=== PATIENT | male | born 1960 | race African-American/Black ===

== ENCOUNTER 2018-12-11 13:38 | Inpatient (IN) | payer SELFPAY ==
[~2018-12-11] VITALS: Ht 172.7 cm; Wt 80.5 kg
[2018-12-11 13:53] LABS: BASO # 0.1 x10^3/uL (0.0-0.2); BASO % 1 % (0-3); EOS # 0.1 x10^3/uL (0.0-0.7); EOS % 1 % (0-3); HEMATOCRIT 43.9 % (39.0-53.0); HEMOGLOBIN 14.9 g/dL (13.0-17.5); LYMPH # 2.6 x10^3/uL (1.0-4.8); LYMPH % 41 % (24-48); MEAN CORPUSCULAR HEMOGLOBIN 29 pg (25-35); MEAN CORPUSCULAR HGB CONC 34 g/dL (31-37); MEAN CORPUSCULAR VOLUME 86 fL (79-100); MONO # 0.5 x10^3/uL (0.0-1.1); MONO % 8 % (0-9); NEUT # 3.1 x10^3/uL (1.8-7.7); NEUT % 50 % (31-73); PLATELET COUNT 252 x10^3/uL (140-400); RED BLOOD COUNT 5.11 x10^6/uL (4.30-5.70); WHITE BLOOD COUNT 6.3 x10^3/uL (4.0-11.0)
[2018-12-11 14:02] LABS: CALCIUM 9.8 mg/dL (8.5-10.1); CREATININE 1.1 mg/dL (0.7-1.3); POTASSIUM 3.7 mmol/L (3.5-5.1)
--- NOTE | 2018-12-11 14:03 | RAD ---
PORTABLE CHEST 1V History: Chest pain Comparison: None. Findings: No consolidation or pleural effusion. Normal heart size. Impression: 1. No acute cardiopulmonary process. Electronically signed by: Pacheco Howard DO (12/11/2018 2:00 PM) [facility]
[2018-12-11 14:09] LABS: ALBUMIN 3.5 g/dL (3.4-5.0); ALBUMIN/GLOBULIN RATIO 0.9 (1.0-1.7); MAGNESIUM 2.3 mg/dL (1.8-2.4); TOTAL BILIRUBIN 0.4 mg/dL (0.2-1.0); TOTAL PROTEIN 7.5 g/dL (6.4-8.2)
--- NOTE | 2018-12-11 14:47 | PDOC1 ---
History and Physical Date of Admission Date of Admission DATE: 12/11/18 TIME: 14:47 Identification/Chief Complaint Chief Complaint SEEN IN ER , 58 year old male who presents by EMS with complaining of chest pain. Patient states he woke up at 1200 (about 1.5 hour prior to arrival to ER) from the nap because of substernal aching chest pain with radiation to his back and left shoulder and rated his pain 10 over 10. Patient complaining of shortness of breath and dizziness. Patient denies fever and chills, palpitation, nausea and vomiting, history of chest pain. EMS gave patient 324 mg of aspirin and 1 sublingual nitroglycerin and pain decreased to 1/10. POS HX COCAINE ABUSE Past Medical History Past Medical History Past Medical History Past Medical History Past Medical History: No Pertinent History Past Surgical History: No Surgical History Alcohol Use: Occasionally Drug Use: Cocaine, Marijuana ETOH, MODERATE FHX DEPRESSION ENT: No pertinent hx Dermatology: No pertinent hx Family History Family History: High Cholestrol, Hypertension Social History Smoke: <1 pack per day ALCOHOL: social Drugs: Cocaine Allergies Allergies: Coded Allergies: No Known Drug Allergies (Unverified , 12/11/18) ROS Review of System Review of Systems Review of Systems Constitutional: Denies fever or chills [] Eyes: Denies change in visual acuity, redness, or eye pain [] HENT: Denies nasal congestion or sore throat [] Respiratory: Denies cough, reports shortness of breath [] Cardiovascular: No additional information not addressed in HPI [] GI: Denies abdominal pain, nausea, vomiting, bloody stools or diarrhea [] : Denies dysuria or hematuria [] Musculoskeletal: Denies back pain or joint pain [] Integument: Denies rash or skin lesions [] Neurologic: Denies headache, focal weakness or sensory changes [] Endocrine: Denies polyuria or polydipsia [] 14 PT systems were reviewed and found to be within normal limits, except as documented Cardiovascular: yes Chest Pain, yes Palpitations Genitourinary: No Dysuria, No Frequency, No Incontinence, No Hematuria, No Retention, No Discharge, No Urgency, No Pain, No Flank Pain, No Other, No , No , No , No , No , No , No Neurological: No Behavorial Changes, No Bowel/Bladder ControlChng, No Confusion, No Dizziness, No Gait Disturbance, No Headaches, No Impaired Coord/balance, No Memory Loss, No Numbness/Tingling, No Seizures, No Speech Problems, No Tremors, No Visual Changes, No Weakness, No Other Physical Exam Physical Exam Physical Exam Physical Exam Constitutional: Well developed, well nourished, mild distress, non-toxic appearance. [] HENT: Normocephalic, atraumatic. Eyes: PERRLA, EOMI, conjunctiva normal, no discharge. [] Neck: Normal range of motion, no tenderness, supple, no stridor. [] Cardiovascular:Heart rate regular rhythm, no murmur [] Lungs & Thorax: Bilateral breath sounds clear to auscultation [] Abdomen: Bowel sounds normal, soft, no tenderness, no masses, no pulsatile mas ses. [] Skin: Warm, dry, no erythema, no rash. [] Back: No tenderness, no CVA tenderness. [] Extremities: No tenderness, no cyanosis, no clubbing, ROM intact, no edema. [] Neurologic: Alert and oriented X 3, no focal deficits noted. [] Psychologic: Affect normal, judgement normal, mood normal. [] General: Alert, Oriented X3, Cooperative, mild distress HEENT: EOMI, Mucous membr. moist/pink Lungs: Clear to auscultation, Normal air movement Heart: RRR, no thrills Breasts: Not examined Abdomen: Normal bowel sounds, Soft PELVIC: Examination not indicated Extremities: No cyanosis Neuro: Normal speech, Sensation intact, Cranial nerves 3-12 NL Psych/Mental Status: Mental status NL, Mood NL Vitals Vitals Vital Signs Date Time Temp Pulse Resp B/P (MAP) Pulse Ox O2 Delivery O2 Flow Rate FiO2 12/11/18 13:38 98.6 79 16 150/92 (111) 95 Room Air 98.6 Labs Labs Laboratory Tests Test 12/11/18 13:44 12/11/18 13:46 White Blood Count 6.3 x10^3/uL (4.0-11.0) Red Blood Count 5.11 x10^6/uL (4.30-5.70) Hemoglobin 14.9 g/dL (13.0-17.5) Hematocrit 43.9 % (39.0-53.0) Mean Corpuscular Volume 86 fL (79-100) Mean Corpuscular Hemoglobin 29 pg (25-35) Mean Corpuscular Hemoglobin Concent 34 g/dL (31-37) Red Cell Distribution Width 14.0 % (11.5-14.5) Platelet Count 252 x10^3/uL (140-400) Neutrophils (%) (Auto) 50 % (31-73) Lymphocytes (%) (Auto) 41 % (24-48) Monocytes (%) (Auto) 8 % (0-9) Eosinophils (%) (Auto) 1 % (0-3) Basophils (%) (Auto) 1 % (0-3) Neutrophils # (Auto) 3.1 x10^3/uL (1.8-7.7) Lymphocytes # (Auto) 2.6 x10^3/uL (1.0-4.8) Monocytes # (Auto) 0.5 x10^3/uL (0.0-1.1) Eosinophils # (Auto) 0.1 x10^3/uL (0.0-0.7) Basophils # (Auto) 0.1 x10^3/uL (0.0-0.2) Sodium Level 140 mmol/L (136-145) Potassium Level 3.7 mmol/L (3.5-5.1) Chloride Level 102 mmol/L (98-107) Carbon Dioxide Level 29 mmol/L (21-32) Anion Gap 9 (6-14) Blood Urea Nitrogen 13 mg/dL (8-26) Creatinine 1.1 mg/dL (0.7-1.3) Estimated GFR (Cockcroft-Gault) 69.0 BUN/Creatinine Ratio 12 (6-20) Glucose Level 177 mg/dL (70-99) Calcium Level 9.8 mg/dL (8.5-10.1) Magnesium Level 2.3 mg/dL (1.8-2.4) Total Bilirubin 0.4 mg/dL (0.2-1.0) Aspartate Amino Transf (AST/SGOT) 13 U/L (15-37) Alanine Aminotransferase (ALT/SGPT) 18 U/L (16-63) Alkaline Phosphatase 98 U/L (46-116) Creatine Kinase 172 U/L (39-308) Troponin I Quantitative < 0.017 ng/mL (0.000-0.055) MY-Dcx-S-Type Natriuretic Peptide 35 pg/mL (0-124) Total Protein 7.5 g/dL (6.4-8.2) Albumin 3.5 g/dL (3.4-5.0) Albumin/Globulin Ratio 0.9 (1.0-1.7) Lipase 234 U/L (73-393) Glucose (Fingerstick) 173 mg/dL (70-99) Laboratory Tests Test 12/11/18 13:44 12/11/18 13:46 White Blood Count 6.3 x10^3/uL (4.0-11.0) Red Blood Count 5.11 x10^6/uL (4.30-5.70) Hemoglobin 14.9 g/dL (13.0-17.5) Hematocrit 43.9 % (39.0-53.0) Mean Corpuscular Volume 86 fL (79-100) Mean Corpuscular Hemoglobin 29 pg (25-35) Mean Corpuscular Hemoglobin Concent 34 g/dL (31-37) Red Cell Distribution Width 14.0 % (11.5-14.5) Platelet Count 252 x10^3/uL (140-400) Neutrophils (%) (Auto) 50 % (31-73) Lymphocytes (%) (Auto) 41 % (24-48) Monocytes (%) (Auto) 8 % (0-9) Eosinophils (%) (Auto) 1 % (0-3) Basophils (%) (Auto) 1 % (0-3) Neutrophils # (Auto) 3.1 x10^3/uL (1.8-7.7) Lymphocytes # (Auto) 2.6 x10^3/uL (1.0-4.8) Monocytes # (Auto) 0.5 x10^3/uL (0.0-1.1) Eosinophils # (Auto) 0.1 x10^3/uL (0.0-0.7) Basophils # (Auto) 0.1 x10^3/uL (0.0-0.2) Sodium Level 140 mmol/L (136-145) Potassium Level 3.7 mmol/L (3.5-5.1) Chloride Level 102 mmol/L (98-107) Carbon Dioxide Level 29 mmol/L (21-32) Anion Gap 9 (6-14) Blood Urea Nitrogen 13 mg/dL (8-26) Creatinine 1.1 mg/dL (0.7-1.3) Estimated GFR (Cockcroft-Gault) 69.0 BUN/Creatinine Ratio 12 (6-20) Glucose Level 177 mg/dL (70-99) Calcium Level 9.8 mg/dL (8.5-10.1) Magnesium Level 2.3 mg/dL (1.8-2.4) Total Bilirubin 0.4 mg/dL (0.2-1.0) Aspartate Amino Transf (AST/SGOT) 13 U/L (15-37) Alanine Aminotransferase (ALT/SGPT) 18 U/L (16-63) Alkaline Phosphatase 98 U/L (46-116) Creatine Kinase 172 U/L (39-308) Troponin I Quantitative < 0.017 ng/mL (0.000-0.055) JP-Ydj-V-Type Natriuretic Peptide 35 pg/mL (0-124) Total Protein 7.5 g/dL (6.4-8.2) Albumin 3.5 g/dL (3.4-5.0) Albumin/Globulin Ratio 0.9 (1.0-1.7) Lipase 234 U/L (73-393) Glucose (Fingerstick) 173 mg/dL (70-99) Images Images PORTABLE CHEST 1V History: Chest pain Comparison: None. Findings: No consolidation or pleural effusion. Normal heart size. Impression: 1. No acute cardiopulmonary process. Electronically signed by: Pacheco Howard DO (12/11/2018 2:00 PM) [facility] VTE Prophylaxis Ordered VTE Prophylaxis Devices: Yes VTE Pharmacological Prophylaxi: Yes Assessment/Plan Assessment/Plan Impression: Acute chest pain HX COCAINE ABUSE Tobacco abuse HX ADMITTED [facility]VC BED CONSULT CARDIOLOGY SERIAL TROPONIN I Counseled on cocaine cessation serial troponin i ECHO DVT PROPHYLAXIS 59 min pt exam, chart review, > 50% of time spent with exam, chart review, pt care coordination JOAN MIMS MD Dec 11, 2018 14:47
--- NOTE | 2018-12-11 14:50 | PHYS DOC ---
Past Medical History Past Medical History: No Pertinent History Past Surgical History: No Surgical History Alcohol Use: Occasionally Drug Use: Cocaine, Marijuana Adult General Chief Complaint Chief Complaint: CHEST PAIN [facility] HPI Patient is a 58 year old male who presents by EMS with complaining of chest pain. Patient states he woke up at 1200 (about 1.5 hour prior to arrival to ER) from the nap because of substernal aching chest pain with radiation to his back and left shoulder and rated his pain 10 over 10. Patient complaining of shortness of breath and dizziness. Patient denies fever and chills, palpitation, nausea and vomiting, history of chest pain. EMS gave patient 324 mg of aspirin and 1 sublingual nitroglycerin and pain decreased to 1/10. Review of Systems Review of Systems Constitutional: Denies fever or chills [] Eyes: Denies change in visual acuity, redness, or eye pain [] HENT: Denies nasal congestion or sore throat [] Respiratory: Denies cough, reports shortness of breath [] Cardiovascular: No additional information not addressed in HPI [] GI: Denies abdominal pain, nausea, vomiting, bloody stools or diarrhea [] : Denies dysuria or hematuria [] Musculoskeletal: Denies back pain or joint pain [] Integument: Denies rash or skin lesions [] Neurologic: Denies headache, focal weakness or sensory changes [] Endocrine: Denies polyuria or polydipsia [] All other systems were reviewed and found to be within normal limits, except as documented in this note. Physical Exam Physical Exam Constitutional: Well developed, well nourished, mild distress, non-toxic appearance. [] HENT: Normocephalic, atraumatic. Eyes: PERRLA, EOMI, conjunctiva normal, no discharge. [] Neck: Normal range of motion, no tenderness, supple, no stridor. [] Cardiovascular:Heart rate regular rhythm, no murmur [] Lungs & Thorax: Bilateral breath sounds clear to auscultation [] Abdomen: Bowel sounds normal, soft, no tenderness, no masses, no pulsatile masses. [] Skin: Warm, dry, no erythema, no rash. [] Back: No tenderness, no CVA tenderness. [] Extremities: No tenderness, no cyanosis, no clubbing, ROM intact, no edema. [] Neurologic: Alert and oriented X 3, no focal deficits noted. [] Psychologic: Affect normal, judgement normal, mood normal. [] Current Patient Data Vital Signs Vital Signs Date Time Temp Pulse Resp B/P (MAP) Pulse Ox O2 Delivery O2 Flow Rate FiO2 12/11/18 13:38 98.6 79 16 150/92 (111) 95 Room Air 98.6 Lab Values Laboratory Tests Test 12/11/18 13:44 12/11/18 13:46 White Blood Count 6.3 x10^3/uL (4.0-11.0) Red Blood Count 5.11 x10^6/uL (4.30-5.70) Hemoglobin 14.9 g/dL (13.0-17.5) Hematocrit 43.9 % (39.0-53.0) Mean Corpuscular Volume 86 fL (79-100) Mean Corpuscular Hemoglobin 29 pg (25-35) Mean Corpuscular Hemoglobin Concent 34 g/dL (31-37) Red Cell Distribution Width 14.0 % (11.5-14.5) Platelet Count 252 x10^3/uL (140-400) Neutrophils (%) (Auto) 50 % (31-73) Lymphocytes (%) (Auto) 41 % (24-48) Monocytes (%) (Auto) 8 % (0-9) Eosinophils (%) (Auto) 1 % (0-3) Basophils (%) (Auto) 1 % (0-3) Neutrophils # (Auto) 3.1 x10^3/uL (1.8-7.7) Lymphocytes # (Auto) 2.6 x10^3/uL (1.0-4.8) Monocytes # (Auto) 0.5 x10^3/uL (0.0-1.1) Eosinophils # (Auto) 0.1 x10^3/uL (0.0-0.7) Basophils # (Auto) 0.1 x10^3/uL (0.0-0.2) Sodium Level 140 mmol/L (136-145) Potassium Level 3.7 mmol/L (3.5-5.1) Chloride Level 102 mmol/L (98-107) Carbon Dioxide Level 29 mmol/L (21-32) Anion Gap 9 (6-14) Blood Urea Nitrogen 13 mg/dL (8-26) Creatinine 1.1 mg/dL (0.7-1.3) Estimated GFR (Cockcroft-Gault) 69.0 BUN/Creatinine Ratio 12 (6-20) Glucose Level 177 mg/dL (70-99) H Calcium Level 9.8 mg/dL (8.5-10.1) Magnesium Level 2.3 mg/dL (1.8-2.4) Total Bilirubin 0.4 mg/dL (0.2-1.0) Aspartate Amino Transferase (AST) 13 U/L (15-37) L Alanine Aminotransferase (ALT) 18 U/L (16-63) Alkaline Phosphatase 98 U/L (46-116) Creatine Kinase 172 U/L (39-308) Troponin I Quantitative < 0.017 ng/mL (0.000-0.055) ZO-Mqi-V-Type Natriuretic Peptide 35 pg/mL (0-124) Total Protein 7.5 g/dL (6.4-8.2) Albumin 3.5 g/dL (3.4-5.0) Albumin/Globulin Ratio 0.9 (1.0-1.7) L Lipase 234 U/L (73-393) Glucose (Fingerstick) 173 mg/dL (70-99) H Laboratory Tests 12/11/18 13:44 Laboratory Tests 12/11/18 13:44 EKG EKG EKG interpreted by me. EKG at 1337 showed normal sinus rhythm at rate of 76, no acute ST and T-wave abnormalities. Radiology/Procedures Radiology/Procedures [][facility] [address] [place] [address] IMAGING REPORT Signed PATIENT: JENNIFER MILLER ACCOUNT: [id number] : 1960 LOCATION: ER AGE: 58 SEX: M EXAM STATUS: PRE ER ORD. PHYSICIAN: HUMBERTO ALANIS MD REASON: chest pain PROCEDURE: PORTABLE CHEST 1V PORTABLE CHEST 1V History: Chest pain Comparison: None. Findings: No consolidation or pleural effusion. Normal heart size. Impression: 1. No acute cardiopulmonary process. Electronically signed by: Pacheco Howard DO (12/11/2018 2:00 PM) [facility] DICTATED and SIGNED BY: PACHECO HOWARD DO DATE: 12/11/18 1400 Course & Med Decision Making Course & Med Decision Making Pertinent Labs and Imaging studies reviewed. (See chart for details) Evaluation of patient in ER showed 58-year-old male patient with heart score of 5 presented to ER with complaining of chest pain and shortness of breath that resolved with aspirin and nitroglycerin. Patient had unremarkable physical exam and labs. Patient requiring admission for further evaluation and treatment. Discussed with Dr. Baldwin who is in agreement with admission. Discussed findings and plan with patient and family, who acknowledge understanding and agreement. Dragon Disclaimer Dragon Disclaimer This electronic medical record was generated, in whole or in part, using a voice recognition dictation system. Departure Departure Impression: Primary Impression: Acute chest pain Additional Impression: Tobacco abuse Disposition: ADMITTED INPATIENT (at 1445) Admitting Physician: JOSE (Dr. Baldwin accepted admission at 1444) Condition: IMPROVED The HEART Score for CP Pts HEART Score for Chest Pain: HEART Score for Chest Pain Response (Comments) Value History Highly Suspicious 2 ECG Normal 0 Age >45 - < 65 1 Risk Factors >3 Risk Factors or Hx CAD 2 Total 5 Risk Factors: Risk Factors: DM, Current or recent (<one month) smoker, HTN, HLP, family history of CAD, obesity. Risk Scores: Score 0 - 3: 2.5% MACE over next 6 weeks - Discharge Home Score 4 - 6: 20.3% MACE over next 6 weeks - Admit for Clinical Observation Score 7 - 10: 72.7% MACE over next 6 weeks - Early Invasive Strategies Problem Qualifiers HUMBERTO ALANIS MD Dec 11, 2018 14:50
--- NOTE | 2018-12-11 15:55 | NUR ---
Patient arrived to room 209 at 1555. Patient is A&OX4. VSS. The patient, JENNIFER MILLER, 58 y/o, M admitted by JOAN MIMS MD, was given written information regarding hospital policies, unit procedures and contact persons. Valuables were checked and noted. Will continue to monitor.
[2018-12-11 16:00] VITALS: BP 140/87
[2018-12-11] MEDS ORDERED: INSU100I13 SQ (16:29)
[2018-12-11] MEDS ORDERED: ATOR40TA PO (16:29)
[2018-12-11] MEDS ORDERED: METF10007 PO (16:29)
[2018-12-11] MEDS ORDERED: GABA300C18 PO (16:29)
[2018-12-11] MEDS ORDERED: ASPI81TA50 PO (16:29)
[2018-12-11] MEDS ORDERED: DEXTROSE 50% 25 GM / 50ML DISP.SYRIN. IV PRN (17:00)
[2018-12-11] MEDS ORDERED: LORazepam 0.5 MG TABLET PO PRN (17:30)
[2018-12-11] MEDS ORDERED: ONDANSETRON PF 4 MG/2 ML VIAL. IV PRN (17:30)
[2018-12-11] MEDS ORDERED: MAG HYDROX/ALUMINUM HYD/SIMETH 30 ML ORAL.SUSP PO PRN (17:30)
[2018-12-11] MEDS ORDERED: 0.9 % SODIUM CHLORIDE 10 ML DISP.SYRIN. IV PRN (17:30)
[2018-12-11] MEDS ORDERED: ACETAMINOPHEN 325 MG TABLET. PO PRN (17:30)
[2018-12-11] MEDS ORDERED: cloNIDine HCL 0.1 MG TABLET PO PRN (17:30)
[2018-12-11] MEDS ORDERED: guaiFENesin ORAL 200 MG/10 ML LIQUID. PO PRN (17:30)
[2018-12-11] MEDS ORDERED: DOCUSATE SODIUM 100 MG CAPSULE. PO PRN (17:30)
[2018-12-11] MEDS: metFORMIN 500 MG TABLET PO SCH (17:59)
[2018-12-11] MEDS ORDERED: MULTIVIT INFUSN,ADULT 4,VIT K 10 ML, THIAMINE INJ 100 MG, FOLIC ACID INJ 1 MG in IV NOR... IV ONE (18:00)
[2018-12-11 19:45] VITALS: BP 115/63
[2018-12-11 20:14] LABS: BARBITURATES NEG (NEG); BENZODIAZEPINES NEG (NEG); CANNABINOIDS NEG (NEG); COCAINE POS (NEG); METHADONE NEG (NEG); OPIATES NEG (NEG); PHENCYCLIDINE NEG (NEG)
[2018-12-11 20:23] LABS: AMPHETAMINE/METHAMPHETAMINE NEG (NEG)
[2018-12-11] MEDS: IPRATRPIUM/ALBUTEROL 0.5/2.5MG 3 ML NEBU. NEB SCH (20:24)
[2018-12-11] MEDS: ATORVASTATIN CALCIUM 40 MG TABLET. PO SCH (21:18)
[2018-12-11] MEDS: ENOXAPARIN 40 MG/0.4 ML SYRINGE. SQ SCH (21:18)
[2018-12-11] MEDS: GABAPENTIN 300 MG CAPSULE. PO SCH (21:18)
[2018-12-11 23:40] VITALS: BP 111/57
[2018-12-12] MEDS: IPRATRPIUM/ALBUTEROL 0.5/2.5MG 3 ML NEBU. NEB SCH ×6 (00:14→19:31)
[2018-12-12 03:00] VITALS: BP 110/59
[2018-12-12 07:00] VITALS: BP 106/56
[2018-12-12] MEDS ORDERED: INSULIN GLARGINE SYRINGE. SQ SCH ×2 (09:00→21:00)
[2018-12-12] MEDS: metFORMIN 500 MG TABLET PO SCH ×2 (09:04→17:31)
[2018-12-12] MEDS: ASPIRIN ENTERIC COATED 81 MG TABLET.DR. PO SCH (09:04)
[2018-12-12] MEDS: GABAPENTIN 300 MG CAPSULE. PO SCH ×2 (09:04→20:29)
[2018-12-12 11:00] VITALS: BP 104/61
--- NOTE | 2018-12-12 12:30 | PDOC ---
PROGRESS NOTES Chief Complaint Chief Complaint acute angina, r/o ACS cocaine abuse Dm2, poor control tobacco use disorder EtOH abuse History of Present Illness History of Present Illness echo pening, may need stress test check a1c and lipids complaince and sobriety discussed Vitals Vitals Vital Signs Date Time Temp Pulse Resp B/P (MAP) Pulse Ox O2 Delivery O2 Flow Rate FiO2 12/12/18 11:44 96 Room Air 12/12/18 07:00 97.7 77 20 106/56 (73) 97.7 Physical Exam General: Alert, Oriented X3, Cooperative, mild distress Heart: Regular rate, Normal S1, Normal S2 Lungs: Clear Abdomen: Normal bowel sounds, Soft Extremities: No cyanosis Labs LABS Laboratory Tests Test 12/11/18 13:44 12/11/18 13:46 12/11/18 17:12 12/11/18 17:50 White Blood Count 6.3 x10^3/uL (4.0-11.0) Red Blood Count 5.11 x10^6/uL (4.30-5.70) Hemoglobin 14.9 g/dL (13.0-17.5) Hematocrit 43.9 % (39.0-53.0) Mean Corpuscular Volume 86 fL (79-100) Mean Corpuscular Hemoglobin 29 pg (25-35) Mean Corpuscular Hemoglobin Concent 34 g/dL (31-37) Red Cell Distribution Width 14.0 % (11.5-14.5) Platelet Count 252 x10^3/uL (140-400) Neutrophils (%) (Auto) 50 % (31-73) Lymphocytes (%) (Auto) 41 % (24-48) Monocytes (%) (Auto) 8 % (0-9) Eosinophils (%) (Auto) 1 % (0-3) Basophils (%) (Auto) 1 % (0-3) Neutrophils # (Auto) 3.1 x10^3/uL (1.8-7.7) Lymphocytes # (Auto) 2.6 x10^3/uL (1.0-4.8) Monocytes # (Auto) 0.5 x10^3/uL (0.0-1.1) Eosinophils # (Auto) 0.1 x10^3/uL (0.0-0.7) Basophils # (Auto) 0.1 x10^3/uL (0.0-0.2) Sodium Level 140 mmol/L (136-145) Potassium Level 3.7 mmol/L (3.5-5.1) Chloride Level 102 mmol/L (98-107) Carbon Dioxide Level 29 mmol/L (21-32) Anion Gap 9 (6-14) Blood Urea Nitrogen 13 mg/dL (8-26) Creatinine 1.1 mg/dL (0.7-1.3) Estimated GFR (Cockcroft-Gault) 69.0 BUN/Creatinine Ratio 12 (6-20) Glucose Level 177 mg/dL (70-99) Calcium Level 9.8 mg/dL (8.5-10.1) Magnesium Level 2.3 mg/dL (1.8-2.4) Total Bilirubin 0.4 mg/dL (0.2-1.0) Aspartate Amino Transf (AST/SGOT) 13 U/L (15-37) Alanine Aminotransferase (ALT/SGPT) 18 U/L (16-63) Alkaline Phosphatase 98 U/L (46-116) Creatine Kinase 172 U/L (39-308) Troponin I Quantitative < 0.017 ng/mL (0.000-0.055) < 0.017 ng/mL (0.000-0.055) JN-Jvb-X-Type Natriuretic Peptide 35 pg/mL (0-124) Total Protein 7.5 g/dL (6.4-8.2) Albumin 3.5 g/dL (3.4-5.0) Albumin/Globulin Ratio 0.9 (1.0-1.7) Lipase 234 U/L (73-393) Glucose (Fingerstick) 173 mg/dL (70-99) 240 mg/dL (70-99) Test 12/11/18 19:40 12/11/18 20:48 12/11/18 20:50 12/12/18 07:52 Urine Opiates Screen Neg (NEG) Urine Methadone Screen Neg (NEG) Urine Barbiturates Neg (NEG) Urine Phencyclidine Screen Neg (NEG) Urine Amphetamine/Methamphetamine Neg (NEG) Urine Benzodiazepines Screen Neg (NEG) Urine Cocaine Screen Pos (NEG) Urine Cannabinoids Screen Neg (NEG) Urine Ethyl Alcohol Neg (NEG) Glucose (Fingerstick) 186 mg/dL (70-99) 190 mg/dL (70-99) Troponin I Quantitative < 0.017 ng/mL (0.000-0.055) Test 12/12/18 11:00 Glucose (Fingerstick) 297 mg/dL (70-99) Assessment and Plan Assessmemt and Plan Problems Medical Problems: (1) Acute chest pain Status: Acute (2) Tobacco abuse Status: Acute Comment Review of Relevant I have reviewed the following items noel (where applicable) has been applied. Labs Laboratory Tests Test 12/11/18 13:44 12/11/18 13:46 12/11/18 17:12 12/11/18 17:50 White Blood Count 6.3 x10^3/uL (4.0-11.0) Red Blood Count 5.11 x10^6/uL (4.30-5.70) Hemoglobin 14.9 g/dL (13.0-17.5) Hematocrit 43.9 % (39.0-53.0) Mean Corpuscular Volume 86 fL (79-100) Mean Corpuscular Hemoglobin 29 pg (25-35) Mean Corpuscular Hemoglobin Concent 34 g/dL (31-37) Red Cell Distribution Width 14.0 % (11.5-14.5) Platelet Count 252 x10^3/uL (140-400) Neutrophils (%) (Auto) 50 % (31-73) Lymphocytes (%) (Auto) 41 % (24-48) Monocytes (%) (Auto) 8 % (0-9) Eosinophils (%) (Auto) 1 % (0-3) Basophils (%) (Auto) 1 % (0-3) Neutrophils # (Auto) 3.1 x10^3/uL (1.8-7.7) Lymphocytes # (Auto) 2.6 x10^3/uL (1.0-4.8) Monocytes # (Auto) 0.5 x10^3/uL (0.0-1.1) Eosinophils # (Auto) 0.1 x10^3/uL (0.0-0.7) Basophils # (Auto) 0.1 x10^3/uL (0.0-0.2) Sodium Level 140 mmol/L (136-145) Potassium Level 3.7 mmol/L (3.5-5.1) Chloride Level 102 mmol/L (98-107) Carbon Dioxide Level 29 mmol/L (21-32) Anion Gap 9 (6-14) Blood Urea Nitrogen 13 mg/dL (8-26) Creatinine 1.1 mg/dL (0.7-1.3) Estimated GFR (Cockcroft-Gault) 69.0 BUN/Creatinine Ratio 12 (6-20) Glucose Level 177 mg/dL (70-99) Calcium Level 9.8 mg/dL (8.5-10.1) Magnesium Level 2.3 mg/dL (1.8-2.4) Total Bilirubin 0.4 mg/dL (0.2-1.0) Aspartate Amino Transf (AST/SGOT) 13 U/L (15-37) Alanine Aminotransferase (ALT/SGPT) 18 U/L (16-63) Alkaline Phosphatase 98 U/L (46-116) Creatine Kinase 172 U/L (39-308) Troponin I Quantitative < 0.017 ng/mL (0.000-0.055) < 0.017 ng/mL (0.000-0.055) ER-Xug-U-Type Natriuretic Peptide 35 pg/mL (0-124) Total Protein 7.5 g/dL (6.4-8.2) Albumin 3.5 g/dL (3.4-5.0) Albumin/Globulin Ratio 0.9 (1.0-1.7) Lipase 234 U/L (73-393) Glucose (Fingerstick) 173 mg/dL (70-99) 240 mg/dL (70-99) Test 12/11/18 19:40 12/11/18 20:48 12/11/18 20:50 12/12/18 07:52 Urine Opiates Screen Neg (NEG) Urine Methadone Screen Neg (NEG) Urine Barbiturates Neg (NEG) Urine Phencyclidine Screen Neg (NEG) Urine Amphetamine/Methamphetamine Neg (NEG) Urine Benzodiazepines Screen Neg (NEG) Urine Cocaine Screen Pos (NEG) Urine Cannabinoids Screen Neg (NEG) Urine Ethyl Alcohol Neg (NEG) Glucose (Fingerstick) 186 mg/dL (70-99) 190 mg/dL (70-99) Troponin I Quantitative < 0.017 ng/mL (0.000-0.055) Test 12/12/18 11:00 Glucose (Fingerstick) 297 mg/dL (70-99) Laboratory Tests Test 12/11/18 13:44 12/11/18 13:46 12/11/18 17:12 12/11/18 17:50 White Blood Count 6.3 x10^3/uL (4.0-11.0) Red Blood Count 5.11 x10^6/uL (4.30-5.70) Hemoglobin 14.9 g/dL (13.0-17.5) Hematocrit 43.9 % (39.0-53.0) Mean Corpuscular Volume 86 fL (79-100) Mean Corpuscular Hemoglobin 29 pg (25-35) Mean Corpuscular Hemoglobin Concent 34 g/dL (31-37) Red Cell Distribution Width 14.0 % (11.5-14.5) Platelet Count 252 x10^3/uL (140-400) Neutrophils (%) (Auto) 50 % (31-73) Lymphocytes (%) (Auto) 41 % (24-48) Monocytes (%) (Auto) 8 % (0-9) Eosinophils (%) (Auto) 1 % (0-3) Basophils (%) (Auto) 1 % (0-3) Neutrophils # (Auto) 3.1 x10^3/uL (1.8-7.7) Lymphocytes # (Auto) 2.6 x10^3/uL (1.0-4.8) Monocytes # (Auto) 0.5 x10^3/uL (0.0-1.1) Eosinophils # (Auto) 0.1 x10^3/uL (0.0-0.7) Basophils # (Auto) 0.1 x10^3/uL (0.0-0.2) Sodium Level 140 mmol/L (136-145) Potassium Level 3.7 mmol/L (3.5-5.1) Chloride Level 102 mmol/L (98-107) Carbon Dioxide Level 29 mmol/L (21-32) Anion Gap 9 (6-14) Blood Urea Nitrogen 13 mg/dL (8-26) Creatinine 1.1 mg/dL (0.7-1.3) Estimated GFR (Cockcroft-Gault) 69.0 BUN/Creatinine Ratio 12 (6-20) Glucose Level 177 mg/dL (70-99) Calcium Level 9.8 mg/dL (8.5-10.1) Magnesium Level 2.3 mg/dL (1.8-2.4) Total Bilirubin 0.4 mg/dL (0.2-1.0) Aspartate Amino Transf (AST/SGOT) 13 U/L (15-37) Alanine Aminotransferase (ALT/SGPT) 18 U/L (16-63) Alkaline Phosphatase 98 U/L (46-116) Creatine Kinase 172 U/L (39-308) Troponin I Quantitative < 0.017 ng/mL (0.000-0.055) < 0.017 ng/mL (0.000-0.055) MN-Bir-O-Type Natriuretic Peptide 35 pg/mL (0-124) Total Protein 7.5 g/dL (6.4-8.2) Albumin 3.5 g/dL (3.4-5.0) Albumin/Globulin Ratio 0.9 (1.0-1.7) Lipase 234 U/L (73-393) Glucose (Fingerstick) 173 mg/dL (70-99) 240 mg/dL (70-99) Test 12/11/18 19:40 12/11/18 20:48 12/11/18 20:50 12/12/18 07:52 Urine Opiates Screen Neg (NEG) Urine Methadone Screen Neg (NEG) Urine Barbiturates Neg (NEG) Urine Phencyclidine Screen Neg (NEG) Urine Amphetamine/Methamphetamine Neg (NEG) Urine Benzodiazepines Screen Neg (NEG) Urine Cocaine Screen Pos (NEG) Urine Cannabinoids Screen Neg (NEG) Urine Ethyl Alcohol Neg (NEG) Glucose (Fingerstick) 186 mg/dL (70-99) 190 mg/dL (70-99) Troponin I Quantitative < 0.017 ng/mL (0.000-0.055) Test 12/12/18 11:00 Glucose (Fingerstick) 297 mg/dL (70-99) Medications Current Medications Dextrose (Dextrose 50%-Water Syringe) 12.5 gm PRN Q15MIN PRN IV SEE COMMENTS; Start 12/11/18 at 17:00 Aspirin (Ecotrin) 81 mg DAILY PO Last administered on 12/12/18at 09:04; Start 12/12/18 at 09:00 Atorvastatin Calcium (Lipitor) 40 mg QHS PO Last administered on 12/11/18at 21:18; Start 12/11/18 at 21:00 Gabapentin (Neurontin) 300 mg BID PO Last administered on 12/12/18at 09:04; Start 12/11/18 at 21:00 Insulin Glargine (Lantus Syringe) 20 unit DAILY SQ ; Start 12/12/18 at 09:00; Stop 12/12/18 at 09:08; Status DC Metformin HCl (Glucophage) 1,000 mg BIDWMEALS PO Last administered on 12/12/18at 09:04; Start 12/11/18 at 17:00 Sodium Chloride (Normal Saline Flush) 3 ml QSHIFT PRN IV AFTER MEDS AND BLOOD DRAWS; Start 12/11/18 at 17:30 Multivitamins 10 ml/Thiamine HCl 100 mg/Folic Acid 1 mg/Sodium Chloride 1,011.2 ml @ 125 mls/ hr 1X ONCE IV Last administered on 12/11/18at 18:02; Start 12/11/18 at 18:00; Stop 12/12/18 at 02:05; Status DC Ondansetron HCl (Zofran) 4 mg PRN Q4HRS PRN IV NAUSEA/VOMITING; Start 12/11/18 at 17:30 Acetaminophen (Tylenol) 650 mg PRN Q4HRS PRN PO TEMP OVER 100.4F OR MILD PAIN; Start 12/11/18 at 17:30 Al Hydroxide/Mg Hydroxide (Mylanta Plus Xs) 30 ml PRN DAILY PRN PO HEARTBURN / GAS; Start 12/11/18 at 17:30 Clonidine HCl (Catapres) 0.1 mg PRN Q6HRS PRN PO SBP>160 OR DBP>90; Start 12/11/18 at 17:30 Docusate Sodium (Colace) 100 mg PRN BID PRN PO CONSTIPATION; Start 12/11/18 at 17:30 Albuterol/ Ipratropium (Duoneb) 3 ml Q4HRS NEB Last administered on 12/12/18at 11:44; Start 12/11/18 at 20:00 Guaifenesin (Robitussin) 200 mg PRN Q4HRS PRN PO COUGH; Start 12/11/18 at 17:30 Lorazepam (Ativan) 0.5 mg PRN Q4HRS PRN PO ANXIETY / AGITATION; Start 12/11/18 at 17:30 Enoxaparin Sodium (Lovenox 40mg Syringe) 40 mg QHS SQ Last administered on 12/11/18at 21:18; Start 12/11/18 at 21:00 Insulin Glargine (Lantus Syringe) 20 unit QHS SQ ; Start 12/12/18 at 21:00 Active Scripts Active Reported Aspir-Low (Aspirin) 81 Mg Tablet.dr 1 Tab PO DAILY Lantus Solostar (Insulin Glargine,Hum.rec.anlog) 100 Unit/1 Ml Insuln.pen 20 Unit SQ DAILY Metformin Hcl 1,000 Mg Tablet 1,000 Mg PO BIDWMEALS Gabapentin (Gabapentin) 300 Mg Capsule 300 Mg PO BID Lipitor (Atorvastatin Calcium) 40 Mg Tablet 1 Tab PO QHS Vitals/I & O Vital Sign - Last 24 Hours 12/11/18 12/11/18 12/11/18 12/11/18 13:38 14:00 15:00 15:30 Temp 98.6 98.6 Pulse 79 78 80 78 Resp 16 B/P (MAP) 150/92 (111) 123/67 (85) 120/76 (91) 105/68 (80) Pulse Ox 95 99 98 98 O2 Delivery Room Air 12/11/18 12/11/18 12/11/18 12/11/18 16:00 16:00 19:45 20:00 Temp 98.1 97.9 98.1 97.9 Pulse 75 83 Resp 18 23 B/P (MAP) 140/87 (104) 115/63 (80) Pulse Ox 96 96 O2 Delivery Room Air Room Air Room Air 12/11/18 12/11/18 12/12/18 12/12/18 20:24 23:40 00:15 03:00 Temp 97.9 97.7 97.9 97.7 Pulse 82 89 Resp 24 22 B/P (MAP) 111/57 (75) 110/59 (76) Pulse Ox 97 94 97 95 O2 Delivery Room Air Room Air Room Air Room Air 12/12/18 12/12/18 12/12/18 12/12/18 07:00 07:38 08:00 11:44 Temp 97.7 97.7 Pulse 77 Resp 20 B/P (MAP) 106/56 (73) Pulse Ox 97 96 96 O2 Delivery Room Air Room Air Room Air Room Air Intake and Output 12/11/18 12/11/18 12/12/18 15:00 23:00 07:00 Intake Total 2120 ml Output Total 1400 ml Balance 720 ml SAMIRA CODY MD Dec 12, 2018 12:30
[2018-12-12 15:00] VITALS: BP 99/55
--- NOTE | 2018-12-12 16:13 | PDOC2 ---
CONSULT Date of Consult Date of Consult DATE: 12/12/18 TIME: 16:08 Reason for Consult Reason for Consult: Chest pain Referring Physician Referring Physician: Dr. Baldwin Identification/Chief Complaint Chief Complaint Chest pain Source Source: Chart review, Patient History of Present Illness Reason for Visit: The patient is a 58-year-old male who was admitted last evening for episodes of chest pain or shortness and shortness of breath. Initial troponin and troponin �2 has been negative. EKG showed no acute ischemic changes. Chest x-ray showed no acute changes. Patient isn't monitored overnight and is feeling better today. His rhythm has remained stable. Testing has returned including a positive urine drug screen for cocaine. Past Medical History Cardiovascular: HTN, Hyperlipidemia ENT: No pertinent hx Endocrine: Diabetes Dermatology: No pertinent hx Past Surgical History Past Surgical History: No pertinent history Family History Family History: High Cholestrol, Hypertension Social History <1 pack per day ALCOHOL: social Drugs: Cocaine Current Problem List Problem List Problems Medical Problems: (1) Acute chest pain Status: Acute (2) Tobacco abuse Status: Acute Current Medications Current Medications Current Medications Dextrose (Dextrose 50%-Water Syringe) 12.5 gm PRN Q15MIN PRN IV SEE COMMENTS; Start 12/11/18 at 17:00 Aspirin (Ecotrin) 81 mg DAILY PO Last administered on 12/12/18at 09:04; Start 12/12/18 at 09:00 Atorvastatin Calcium (Lipitor) 40 mg QHS PO Last administered on 12/11/18at 21:18; Start 12/11/18 at 21:00 Gabapentin (Neurontin) 300 mg BID PO Last administered on 12/12/18at 09:04; Start 12/11/18 at 21:00 Insulin Glargine (Lantus Syringe) 20 unit DAILY SQ ; Start 12/12/18 at 09:00; Stop 12/12/18 at 09:08; Status DC Metformin HCl (Glucophage) 1,000 mg BIDWMEALS PO Last administered on 12/12/18at 09:04; Start 12/11/18 at 17:00 Sodium Chloride (Normal Saline Flush) 3 ml QSHIFT PRN IV AFTER MEDS AND BLOOD DRAWS; Start 12/11/18 at 17:30 Multivitamins 10 ml/Thiamine HCl 100 mg/Folic Acid 1 mg/Sodium Chloride 1,011.2 ml @ 125 mls/ hr 1X ONCE IV Last administered on 12/11/18at 18:02; Start 12/11/18 at 18:00; Stop 12/12/18 at 02:05; Status DC Ondansetron HCl (Zofran) 4 mg PRN Q4HRS PRN IV NAUSEA/VOMITING; Start 12/11/18 at 17:30 Acetaminophen (Tylenol) 650 mg PRN Q4HRS PRN PO TEMP OVER 100.4F OR MILD PAIN; Start 12/11/18 at 17:30 Al Hydroxide/Mg Hydroxide (Mylanta Plus Xs) 30 ml PRN DAILY PRN PO HEARTBURN / GAS; Start 12/11/18 at 17:30 Clonidine HCl (Catapres) 0.1 mg PRN Q6HRS PRN PO SBP>160 OR DBP>90; Start 12/11/18 at 17:30 Docusate Sodium (Colace) 100 mg PRN BID PRN PO CONSTIPATION; Start 12/11/18 at 17:30 Albuterol/ Ipratropium (Duoneb) 3 ml Q4HRS NEB Last administered on 12/12/18at 15:28; Start 12/11/18 at 20:00 Guaifenesin (Robitussin) 200 mg PRN Q4HRS PRN PO COUGH; Start 12/11/18 at 17:30 Lorazepam (Ativan) 0.5 mg PRN Q4HRS PRN PO ANXIETY / AGITATION; Start 12/11/18 at 17:30 Enoxaparin Sodium (Lovenox 40mg Syringe) 40 mg QHS SQ Last administered on 12/11/18at 21:18; Start 12/11/18 at 21:00 Insulin Glargine (Lantus Syringe) 20 unit QHS SQ ; Start 12/12/18 at 21:00 Active Scripts Active Reported Aspir-Low (Aspirin) 81 Mg Tablet.dr 1 Tab PO DAILY Lantus Solostar (Insulin Glargine,Hum.rec.anlog) 100 Unit/1 Ml Insuln.pen 20 Unit SQ DAILY Metformin Hcl 1,000 Mg Tablet 1,000 Mg PO BIDWMEALS Gabapentin (Gabapentin) 300 Mg Capsule 300 Mg PO BID Lipitor (Atorvastatin Calcium) 40 Mg Tablet 1 Tab PO QHS Allergies Allergies: Coded Allergies: No Known Drug Allergies (Unverified , 12/11/18) ROS Cardiovascular: yes Chest Pain Physical Exam General: No acute distress HEENT: Atraumatic Lungs: Clear to auscultation Heart: Regular rate Abdomen: Normal bowel sounds Vitals VITALS Vital Signs Date Time Temp Pulse Resp B/P (MAP) Pulse Ox O2 Delivery O2 Flow Rate FiO2 12/12/18 15:28 96 Room Air 12/12/18 15:00 98.2 75 20 99/55 (70) 98.2 Labs Labs Laboratory Tests Test 12/11/18 13:44 12/11/18 13:46 12/11/18 17:12 12/11/18 17:50 White Blood Count 6.3 x10^3/uL (4.0-11.0) Red Blood Count 5.11 x10^6/uL (4.30-5.70) Hemoglobin 14.9 g/dL (13.0-17.5) Hematocrit 43.9 % (39.0-53.0) Mean Corpuscular Volume 86 fL (79-100) Mean Corpuscular Hemoglobin 29 pg (25-35) Mean Corpuscular Hemoglobin Concent 34 g/dL (31-37) Red Cell Distribution Width 14.0 % (11.5-14.5) Platelet Count 252 x10^3/uL (140-400) Neutrophils (%) (Auto) 50 % (31-73) Lymphocytes (%) (Auto) 41 % (24-48) Monocytes (%) (Auto) 8 % (0-9) Eosinophils (%) (Auto) 1 % (0-3) Basophils (%) (Auto) 1 % (0-3) Neutrophils # (Auto) 3.1 x10^3/uL (1.8-7.7) Lymphocytes # (Auto) 2.6 x10^3/uL (1.0-4.8) Monocytes # (Auto) 0.5 x10^3/uL (0.0-1.1) Eosinophils # (Auto) 0.1 x10^3/uL (0.0-0.7) Basophils # (Auto) 0.1 x10^3/uL (0.0-0.2) Sodium Level 140 mmol/L (136-145) Potassium Level 3.7 mmol/L (3.5-5.1) Chloride Level 102 mmol/L (98-107) Carbon Dioxide Level 29 mmol/L (21-32) Anion Gap 9 (6-14) Blood Urea Nitrogen 13 mg/dL (8-26) Creatinine 1.1 mg/dL (0.7-1.3) Estimated GFR (Cockcroft-Gault) 69.0 BUN/Creatinine Ratio 12 (6-20) Glucose Level 177 mg/dL (70-99) Calcium Level 9.8 mg/dL (8.5-10.1) Magnesium Level 2.3 mg/dL (1.8-2.4) Total Bilirubin 0.4 mg/dL (0.2-1.0) Aspartate Amino Transf (AST/SGOT) 13 U/L (15-37) Alanine Aminotransferase (ALT/SGPT) 18 U/L (16-63) Alkaline Phosphatase 98 U/L (46-116) Creatine Kinase 172 U/L (39-308) Troponin I Quantitative < 0.017 ng/mL (0.000-0.055) < 0.017 ng/mL (0.000-0.055) WC-Myc-C-Type Natriuretic Peptide 35 pg/mL (0-124) Total Protein 7.5 g/dL (6.4-8.2) Albumin 3.5 g/dL (3.4-5.0) Albumin/Globulin Ratio 0.9 (1.0-1.7) Lipase 234 U/L (73-393) Glucose (Fingerstick) 173 mg/dL (70-99) 240 mg/dL (70-99) Test 12/11/18 19:40 12/11/18 20:48 12/11/18 20:50 12/12/18 07:52 Urine Opiates Screen Neg (NEG) Urine Methadone Screen Neg (NEG) Urine Barbiturates Neg (NEG) Urine Phencyclidine Screen Neg (NEG) Urine Amphetamine/Methamphetamine Neg (NEG) Urine Benzodiazepines Screen Neg (NEG) Urine Cocaine Screen Pos (NEG) Urine Cannabinoids Screen Neg (NEG) Urine Ethyl Alcohol Neg (NEG) Glucose (Fingerstick) 186 mg/dL (70-99) 190 mg/dL (70-99) Troponin I Quantitative < 0.017 ng/mL (0.000-0.055) Test 12/12/18 11:00 Glucose (Fingerstick) 297 mg/dL (70-99) Laboratory Tests Test 12/11/18 17:12 12/11/18 17:50 12/11/18 19:40 12/11/18 20:48 Glucose (Fingerstick) 240 mg/dL (70-99) 186 mg/dL (70-99) Troponin I Quantitative < 0.017 ng/mL (0.000-0.055) Urine Opiates Screen Neg (NEG) Urine Methadone Screen Neg (NEG) Urine Barbiturates Neg (NEG) Urine Phencyclidine Screen Neg (NEG) Urine Amphetamine/Methamphetamine Neg (NEG) Urine Benzodiazepines Screen Neg (NEG) Urine Cocaine Screen Pos (NEG) Urine Cannabinoids Screen Neg (NEG) Urine Ethyl Alcohol Neg (NEG) Test 12/11/18 20:50 12/12/18 07:52 12/12/18 11:00 Troponin I Quantitative < 0.017 ng/mL (0.000-0.055) Glucose (Fingerstick) 190 mg/dL (70-99) 297 mg/dL (70-99) Images Images Chest x-ray with no acute changes. Assessment/Plan Assessment/Plan 1. Chest pain. Patient's chest pain has largely resolved. Troponin has been negative �2. EKG shows no acute ischemic changes. Urine drug screen testing is positive for cocaine. At this time will continue present medications increase activities. We'll check an echocardiogram today. If echocardiogram shows no significant LV dysfunction the patient could be discharged from a cardiac viewpoint later today and will follow-up as an outpatient. 2. Diabetes mellitus. Medications as per the primary service. 3. Hypertension. We'll continue present medical treatment at this time. 4. Substance and tobacco abuse as above. Thank you for allowing us to participate in the care of your patient. LIAM JOHN MD Dec 12, 2018 16:13
[2018-12-12] MEDS ORDERED: ALBUTEROL SULFATE 2.5 MG/3 ML NEBU. NEB PRN (16:15)
--- NOTE | 2018-12-12 16:16 | EKG ---
[facility] [address] [place] [address] Test Date: 2018-12-12 Test Time: 17:08:26 Pat Name: JENNIFER MILLER Department: Room: 209 1 Gender: M Head Of English: : 1960 Requested By: HUMBERTO ALANIS Order Number: [id number] Reading MD: Measurements Intervals [place] Rate: 86 P: 127 MN: 134 QRS: 128 QRSD: 82 T: 171 QT: 348 QTc: 419 Interpretive Statements Cannot analyze ECG CHEST LEAD(S) MISSING! (Measurements might be questionable) RI6.01 No previous ECG available for comparison
--- NOTE | 2018-12-12 16:58 | CARD ---
MR#: [id number] Date of Study: 12/12/2018 Ordering Physician: JOAN MIMS, Referring Physician: JOAN MIMS Tech: Brayan Mayes RDCS APPROVED REPORT EXAM: Two-dimensional and M-mode echocardiogram with Doppler and color Doppler. Other Information Quality : 96 Rhythm : NSR INDICATION Congestive Heart Failure RISK FACTORS Hypertension Hyperlipidemia 2D DIMENSIONS RVDd2.7 (2.9-3.5cm)Left Atrium(2D)3.6 (1.6-4.0cm) IVSd1.3 (0.7-1.1cm)Aortic Root(2D)3.1 (2.0-3.7cm) LVDd4.2 (3.9-5.9cm)LVOT Diameter2.2 (1.8-2.4cm) PWd1.2 (0.7-1.1cm)LVDs2.3 (2.5-4.0cm) FS (%) 45.8 %SV60.4 ml Aortic Valve AoV Peak Sage.153.9cm/sAoV VTI29.5cm AO Peak GR.9.5mmHgLVOT Peak Sage.135.7cm/s AO Mean GR.4mmHgAVA (VMAX)3.49cm2 Mitral Valve MV E Brfuwqsv43.3cm/sMV DECEL [id number] MV A Tnhmowtm076.0cm/sE/A Ratio0.8 MV A [id number] Pulmonary Valve PV Peak Mxijmbne763.4cm/s Pulmonary Vein S1 Iabgsmay71.3cm/sD2 Etfmsecn88.5cm/s LEFT VENTRICLE The left ventricle is normal size. There is mild concentric left ventricular hypertrophy. The left ve ntricular systolic function is normal and the ejection fraction is within normal range. Ejection frac tion is 60-65%. There is normal LV segmental wall motion. RIGHT VENTRICLE The right ventricle is normal size. There is normal right ventricular wall thickness. The right ventr icular systolic function is normal. ATRIA The left atrium size is normal. The right atrium size is normal. The interatrial septum is intact wit h no evidence for an atrial septal defect or patent foramen ovale as noted on 2-D or Doppler imaging. AORTIC VALVE The aortic valve is normal in structure and function. Doppler and Color Flow revealed no significant aortic regurgitation. There is no significant aortic valvular stenosis. MITRAL VALVE The mitral valve is normal in structure and function. There is no mitral valve stenosis. Doppler and Color Flow revealed no mitral valve regurgitation noted. TRICUSPID VALVE The tricuspid valve is normal in structure and function. Doppler and Color Flow revealed no tricuspid valve regurgitation noted. GREAT VESSELS The aortic root is normal in size. The ascending aorta is normal in size. The IVC is normal in size a nd collapses >50% with inspiration. PERICARDIAL EFFUSION There is no evidence of significant pericardial effusion. Critical Notification Critical Value: No <Conclusion> The left ventricle is normal size. The left ventricular systolic function is normal and the ejection fraction is within normal range. E jection fraction is 60-65%. There is normal LV segmental wall motion. There is mild concentric left ventricular hypertrophy. There is no significant aortic valvular stenosis. Doppler and Color Flow revealed no significant aortic regurgitation. Doppler and Color Flow revealed no mitral valve regurgitation noted. Doppler and Color Flow revealed no tricuspid valve regurgitation noted. Signed by : Jean Gomez MD Electronically Approved : 12/12/2018 16:58:28
[2018-12-12 20:00] VITALS: BP 100/55
[2018-12-12] MEDS: ATORVASTATIN CALCIUM 40 MG TABLET. PO SCH (20:29)
[2018-12-12] MEDS: ENOXAPARIN 40 MG/0.4 ML SYRINGE. SQ SCH (20:30)
[2018-12-12 23:15] VITALS: BP 125/70
[2018-12-13 03:00] VITALS: BP 115/67
[2018-12-13 05:49] LABS: BASO % 1 % (0-3); EOS # 0.1 x10^3/uL (0.0-0.7); EOS % 3 % (0-3); HEMATOCRIT 41.8 % (39.0-53.0); HEMOGLOBIN 14.2 g/dL (13.0-17.5); LYMPH # 2.7 x10^3/uL (1.0-4.8); LYMPH % 58 % (24-48); MEAN CORPUSCULAR HEMOGLOBIN 30 pg (25-35); MEAN CORPUSCULAR HGB CONC 34 g/dL (31-37); MEAN CORPUSCULAR VOLUME 87 fL (79-100); MONO # 0.4 x10^3/uL (0.0-1.1); MONO % 9 % (0-9); NEUT # 1.4 x10^3/uL (1.8-7.7); NEUT % 29 % (31-73); PLATELET COUNT 207 x10^3/uL (140-400); RED BLOOD COUNT 4.81 x10^6/uL (4.30-5.70); WHITE BLOOD COUNT 4.7 x10^3/uL (4.0-11.0)
[2018-12-13 06:24] LABS: ALBUMIN 3.3 g/dL (3.4-5.0); ALBUMIN/GLOBULIN RATIO 0.8 (1.0-1.7); CALCIUM 10.2 mg/dL (8.5-10.1); CREATININE 1.2 mg/dL (0.7-1.3); GFR 75.5; POTASSIUM 4.3 mmol/L (3.5-5.1); TOTAL BILIRUBIN 0.2 mg/dL (0.2-1.0); TOTAL PROTEIN 7.2 g/dL (6.4-8.2)
[2018-12-13 07:00] VITALS: BP 109/55
[2018-12-13] MEDS: IPRATRPIUM/ALBUTEROL 0.5/2.5MG 3 ML NEBU. NEB SCH ×2 (07:56→12:00)
[2018-12-13] MEDS: metFORMIN 500 MG TABLET PO SCH (08:12)
[2018-12-13] MEDS: GABAPENTIN 300 MG CAPSULE. PO SCH (08:12)
[2018-12-13] MEDS: ASPIRIN ENTERIC COATED 81 MG TABLET.DR. PO SCH (08:12)
[2018-12-13 11:00] VITALS: BP 109/69
--- NOTE | 2018-12-13 13:55 | NUR ---
SS following for discharge planning. SS reviewed pt chart. Pt is self pay pt. [facility] following for self pay status. Pt is from home and is currently on room air. Discharge order on the chart for home with self care.
--- NOTE | 2018-12-13 15:15 | NUR ---
Discharge Note: JOSSIE MILLER Discharge instructions and discharge home medications reviewed with Patient and a copy given. All questions have been answered and understanding verbalized. The following instructions and handouts were given: CP, follow up with cardiology Discontinued lines and drains: Peripheral IV intact. Patient discharged to Home or Self Care with Self via Wheelchair
--- NOTE | 2018-12-13 15:50 | PDOC ---
PROGRESS NOTES Chief Complaint Chief Complaint acute angina, r/o ACS cocaine abuse Dm2, poor control tobacco use disorder EtOH abuse History of Present Illness History of Present Illness DC home feels well complaince and sobriety discussed Vitals Vitals Vital Signs Date Time Temp Pulse Resp B/P (MAP) Pulse Ox O2 Delivery O2 Flow Rate FiO2 12/13/18 12:01 Room Air 12/13/18 11:00 97.9 85 20 109/69 (82) 96 97.9 Physical Exam General: No acute distress Heart: Regular rate Lungs: Clear Abdomen: Normal bowel sounds Extremities: No cyanosis Labs LABS Laboratory Tests Test 12/12/18 17:08 12/12/18 21:01 12/13/18 05:00 12/13/18 07:17 Glucose (Fingerstick) 286 mg/dL (70-99) 303 mg/dL (70-99) 208 mg/dL (70-99) White Blood Count 4.7 x10^3/uL (4.0-11.0) Red Blood Count 4.81 x10^6/uL (4.30-5.70) Hemoglobin 14.2 g/dL (13.0-17.5) Hematocrit 41.8 % (39.0-53.0) Mean Corpuscular Volume 87 fL (79-100) Mean Corpuscular Hemoglobin 30 pg (25-35) Mean Corpuscular Hemoglobin Concent 34 g/dL (31-37) Red Cell Distribution Width 14.0 % (11.5-14.5) Platelet Count 207 x10^3/uL (140-400) Neutrophils (%) (Auto) 29 % (31-73) Lymphocytes (%) (Auto) 58 % (24-48) Monocytes (%) (Auto) 9 % (0-9) Eosinophils (%) (Auto) 3 % (0-3) Basophils (%) (Auto) 1 % (0-3) Neutrophils # (Auto) 1.4 x10^3/uL (1.8-7.7) Lymphocytes # (Auto) 2.7 x10^3/uL (1.0-4.8) Monocytes # (Auto) 0.4 x10^3/uL (0.0-1.1) Eosinophils # (Auto) 0.1 x10^3/uL (0.0-0.7) Basophils # (Auto) 0.0 x10^3/uL (0.0-0.2) Sodium Level 139 mmol/L (136-145) Potassium Level 4.3 mmol/L (3.5-5.1) Chloride Level 102 mmol/L (98-107) Carbon Dioxide Level 26 mmol/L (21-32) Anion Gap 11 (6-14) Blood Urea Nitrogen 11 mg/dL (8-26) Creatinine 1.2 mg/dL (0.7-1.3) Estimated GFR (Cockcroft-Gault) 75.5 BUN/Creatinine Ratio 9 (6-20) Glucose Level 285 mg/dL (70-99) Calcium Level 10.2 mg/dL (8.5-10.1) Total Bilirubin 0.2 mg/dL (0.2-1.0) Aspartate Amino Transf (AST/SGOT) 15 U/L (15-37) Alanine Aminotransferase (ALT/SGPT) 20 U/L (16-63) Alkaline Phosphatase 106 U/L (46-116) Total Protein 7.2 g/dL (6.4-8.2) Albumin 3.3 g/dL (3.4-5.0) Albumin/Globulin Ratio 0.8 (1.0-1.7) Triglycerides Level 265 mg/dL (0-150) Cholesterol Level 161 mg/dL (0-200) LDL Cholesterol, Calculated 76 mg/dL (0-100) VLDL Cholesterol, Calculated 53 mg/dL (0-40) Non-HDL Cholesterol Calculated 129 mg/dL (0-129) HDL Cholesterol 32 mg/dL (40-60) Cholesterol/HDL Ratio 5.0 Test 12/13/18 11:49 Glucose (Fingerstick) 213 mg/dL (70-99) Assessment and Plan Assessmemt and Plan Problems Medical Problems: (1) Acute chest pain Status: Acute (2) Tobacco abuse Status: Acute Comment Review of Relevant I have reviewed the following items noel (where applicable) has been applied. Labs Laboratory Tests Test 12/11/18 17:12 12/11/18 17:50 12/11/18 19:40 12/11/18 20:48 Glucose (Fingerstick) 240 mg/dL (70-99) 186 mg/dL (70-99) Troponin I Quantitative < 0.017 ng/mL (0.000-0.055) Urine Opiates Screen Neg (NEG) Urine Methadone Screen Neg (NEG) Urine Barbiturates Neg (NEG) Urine Phencyclidine Screen Neg (NEG) Urine Amphetamine/Methamphetamine Neg (NEG) Urine Benzodiazepines Screen Neg (NEG) Urine Cocaine Screen Pos (NEG) Urine Cannabinoids Screen Neg (NEG) Urine Ethyl Alcohol Neg (NEG) Test 12/11/18 20:50 12/12/18 07:52 12/12/18 11:00 12/12/18 17:08 Troponin I Quantitative < 0.017 ng/mL (0.000-0.055) Glucose (Fingerstick) 190 mg/dL (70-99) 297 mg/dL (70-99) 286 mg/dL (70-99) Test 12/12/18 21:01 12/13/18 05:00 12/13/18 07:17 12/13/18 11:49 Glucose (Fingerstick) 303 mg/dL (70-99) 208 mg/dL (70-99) 213 mg/dL (70-99) White Blood Count 4.7 x10^3/uL (4.0-11.0) Red Blood Count 4.81 x10^6/uL (4.30-5.70) Hemoglobin 14.2 g/dL (13.0-17.5) Hematocrit 41.8 % (39.0-53.0) Mean Corpuscular Volume 87 fL (79-100) Mean Corpuscular Hemoglobin 30 pg (25-35) Mean Corpuscular Hemoglobin Concent 34 g/dL (31-37) Red Cell Distribution Width 14.0 % (11.5-14.5) Platelet Count 207 x10^3/uL (140-400) Neutrophils (%) (Auto) 29 % (31-73) Lymphocytes (%) (Auto) 58 % (24-48) Monocytes (%) (Auto) 9 % (0-9) Eosinophils (%) (Auto) 3 % (0-3) Basophils (%) (Auto) 1 % (0-3) Neutrophils # (Auto) 1.4 x10^3/uL (1.8-7.7) Lymphocytes # (Auto) 2.7 x10^3/uL (1.0-4.8) Monocytes # (Auto) 0.4 x10^3/uL (0.0-1.1) Eosinophils # (Auto) 0.1 x10^3/uL (0.0-0.7) Basophils # (Auto) 0.0 x10^3/uL (0.0-0.2) Sodium Level 139 mmol/L (136-145) Potassium Level 4.3 mmol/L (3.5-5.1) Chloride Level 102 mmol/L (98-107) Carbon Dioxide Level 26 mmol/L (21-32) Anion Gap 11 (6-14) Blood Urea Nitrogen 11 mg/dL (8-26) Creatinine 1.2 mg/dL (0.7-1.3) Estimated GFR (Cockcroft-Gault) 75.5 BUN/Creatinine Ratio 9 (6-20) Glucose Level 285 mg/dL (70-99) Calcium Level 10.2 mg/dL (8.5-10.1) Total Bilirubin 0.2 mg/dL (0.2-1.0) Aspartate Amino Transf (AST/SGOT) 15 U/L (15-37) Alanine Aminotransferase (ALT/SGPT) 20 U/L (16-63) Alkaline Phosphatase 106 U/L (46-116) Total Protein 7.2 g/dL (6.4-8.2) Albumin 3.3 g/dL (3.4-5.0) Albumin/Globulin Ratio 0.8 (1.0-1.7) Triglycerides Level 265 mg/dL (0-150) Cholesterol Level 161 mg/dL (0-200) LDL Cholesterol, Calculated 76 mg/dL (0-100) VLDL Cholesterol, Calculated 53 mg/dL (0-40) Non-HDL Cholesterol Calculated 129 mg/dL (0-129) HDL Cholesterol 32 mg/dL (40-60) Cholesterol/HDL Ratio 5.0 Laboratory Tests Test 12/12/18 17:08 12/12/18 21:01 12/13/18 05:00 12/13/18 07:17 Glucose (Fingerstick) 286 mg/dL (70-99) 303 mg/dL (70-99) 208 mg/dL (70-99) White Blood Count 4.7 x10^3/uL (4.0-11.0) Red Blood Count 4.81 x10^6/uL (4.30-5.70) Hemoglobin 14.2 g/dL (13.0-17.5) Hematocrit 41.8 % (39.0-53.0) Mean Corpuscular Volume 87 fL (79-100) Mean Corpuscular Hemoglobin 30 pg (25-35) Mean Corpuscular Hemoglobin Concent 34 g/dL (31-37) Red Cell Distribution Width 14.0 % (11.5-14.5) Platelet Count 207 x10^3/uL (140-400) Neutrophils (%) (Auto) 29 % (31-73) Lymphocytes (%) (Auto) 58 % (24-48) Monocytes (%) (Auto) 9 % (0-9) Eosinophils (%) (Auto) 3 % (0-3) Basophils (%) (Auto) 1 % (0-3) Neutrophils # (Auto) 1.4 x10^3/uL (1.8-7.7) Lymphocytes # (Auto) 2.7 x10^3/uL (1.0-4.8) Monocytes # (Auto) 0.4 x10^3/uL (0.0-1.1) Eosinophils # (Auto) 0.1 x10^3/uL (0.0-0.7) Basophils # (Auto) 0.0 x10^3/uL (0.0-0.2) Sodium Level 139 mmol/L (136-145) Potassium Level 4.3 mmol/L (3.5-5.1) Chloride Level 102 mmol/L (98-107) Carbon Dioxide Level 26 mmol/L (21-32) Anion Gap 11 (6-14) Blood Urea Nitrogen 11 mg/dL (8-26) Creatinine 1.2 mg/dL (0.7-1.3) Estimated GFR (Cockcroft-Gault) 75.5 BUN/Creatinine Ratio 9 (6-20) Glucose Level 285 mg/dL (70-99) Calcium Level 10.2 mg/dL (8.5-10.1) Total Bilirubin 0.2 mg/dL (0.2-1.0) Aspartate Amino Transf (AST/SGOT) 15 U/L (15-37) Alanine Aminotransferase (ALT/SGPT) 20 U/L (16-63) Alkaline Phosphatase 106 U/L (46-116) Total Protein 7.2 g/dL (6.4-8.2) Albumin 3.3 g/dL (3.4-5.0) Albumin/Globulin Ratio 0.8 (1.0-1.7) Triglycerides Level 265 mg/dL (0-150) Cholesterol Level 161 mg/dL (0-200) LDL Cholesterol, Calculated 76 mg/dL (0-100) VLDL Cholesterol, Calculated 53 mg/dL (0-40) Non-HDL Cholesterol Calculated 129 mg/dL (0-129) HDL Cholesterol 32 mg/dL (40-60) Cholesterol/HDL Ratio 5.0 Test 12/13/18 11:49 Glucose (Fingerstick) 213 mg/dL (70-99) Medications Current Medications Dextrose (Dextrose 50%-Water Syringe) 12.5 gm PRN Q15MIN PRN IV SEE COMMENTS; Start 12/11/18 at 17:00; Stop 12/13/18 at 15:36; Status DC Aspirin (Ecotrin) 81 mg DAILY PO Last administered on 12/13/18at 08:12; Start 12/12/18 at 09:00; Stop 12/13/18 at 15:36; Status DC Atorvastatin Calcium (Lipitor) 40 mg QHS PO Last administered on 12/12/18at 20:29; Start 12/11/18 at 21:00; Stop 12/13/18 at 15:36; Status DC Gabapentin (Neurontin) 300 mg BID PO Last administered on 12/13/18at 08:12; Start 12/11/18 at 21:00; Stop 12/13/18 at 15:36; Status DC Insulin Glargine (Lantus Syringe) 20 unit DAILY SQ ; Start 12/12/18 at 09:00; Stop 12/12/18 at 09:08; Status DC Metformin HCl (Glucophage) 1,000 mg BIDWMEALS PO Last administered on 12/13/18at 08:12; Start 12/11/18 at 17:00; Stop 12/13/18 at 15:36; Status DC Sodium Chloride (Normal Saline Flush) 3 ml QSHIFT PRN IV AFTER MEDS AND BLOOD DRAWS; Start 12/11/18 at 17:30; Stop 12/13/18 at 15:36; Status DC Multivitamins 10 ml/Thiamine HCl 100 mg/Folic Acid 1 mg/Sodium Chloride 1,011.2 ml @ 125 mls/ hr 1X ONCE IV Last administered on 12/11/18at 18:02; Start 12/11/18 at 18:00; Stop 12/12/18 at 02:05; Status DC Ondansetron HCl (Zofran) 4 mg PRN Q4HRS PRN IV NAUSEA/VOMITING; Start 12/11/18 at 17:30; Stop 12/13/18 at 15:36; Status DC Acetaminophen (Tylenol) 650 mg PRN Q4HRS PRN PO TEMP OVER 100.4F OR MILD PAIN; Start 12/11/18 at 17:30; Stop 12/13/18 at 15:36; Status DC Al Hydroxide/Mg Hydroxide (Mylanta Plus Xs) 30 ml PRN DAILY PRN PO HEARTBURN / GAS; Start 12/11/18 at 17:30; Stop 12/13/18 at 15:36; Status DC Clonidine HCl (Catapres) 0.1 mg PRN Q6HRS PRN PO SBP>160 OR DBP>90; Start 12/11/18 at 17:30; Stop 12/13/18 at 15:36; Status DC Docusate Sodium (Colace) 100 mg PRN BID PRN PO CONSTIPATION; Start 12/11/18 at 17:30; Stop 12/13/18 at 15:36; Status DC Albuterol/ Ipratropium (Duoneb) 3 ml Q4HRS NEB Last administered on 12/12/18at 15:28; Start 12/11/18 at 20:00; Stop 12/12/18 at 16:13; Status DC Guaifenesin (Robitussin) 200 mg PRN Q4HRS PRN PO COUGH; Start 12/11/18 at 17:30; Stop 12/13/18 at 15:36; Status DC Lorazepam (Ativan) 0.5 mg PRN Q4HRS PRN PO ANXIETY / AGITATION Last administered on 12/12/18at 20:29; Start 12/11/18 at 17:30; Stop 12/13/18 at 15:36; Status DC Enoxaparin Sodium (Lovenox 40mg Syringe) 40 mg QHS SQ Last administered on 12/12/18at 20:30; Start 12/11/18 at 21:00; Stop 12/13/18 at 15:36; Status DC Insulin Glargine (Lantus Syringe) 20 unit QHS SQ Last administered on 12/12/18at 21:39; Start 12/12/18 at 21:00; Stop 12/13/18 at 15:36; Status DC Albuterol/ Ipratropium (Duoneb) 3 ml RTQID NEB Last administered on 12/13/18at 12:00; Start 12/12/18 at 20:00; Stop 12/13/18 at 15:36; Status DC Albuterol Sulfate (Ventolin Neb Soln) 2.5 mg PRN Q4HRS PRN NEB SHORTNESS OF B REATH; Start 12/12/18 at 16:15; Stop 12/13/18 at 15:36; Status DC Active Scripts Active Reported Aspir-Low (Aspirin) 81 Mg Tablet. 1 Tab PO DAILY Lantus Solostar (Insulin Glargine,Hum.rec.anlog) 100 Unit/1 Ml Insuln.pen 20 Unit SQ DAILY Metformin Hcl 1,000 Mg Tablet 1,000 Mg PO BIDWMEALS Gabapentin (Gabapentin) 300 Mg Capsule 300 Mg PO BID Lipitor (Atorvastatin Calcium) 40 Mg Tablet 1 Tab PO QHS Vitals/I & O Vital Sign - Last 24 Hours 12/12/18 12/12/18 12/12/18 12/12/18 19:32 20:00 20:00 23:15 Temp 97.6 98.4 97.6 98.4 Pulse 94 86 Resp 18 18 B/P (MAP) 100/55 (70) 125/70 (88) Pulse Ox 96 95 95 O2 Delivery Room Air Room Air Room Air Room Air 12/13/18 12/13/18 12/13/18 12/13/18 03:00 07:00 07:57 08:00 Temp 97.6 98.1 97.6 98.1 Pulse 83 75 Resp 20 20 B/P (MAP) 115/67 (83) 109/55 (73) Pulse Ox 95 96 99 O2 Delivery Room Air Room Air Room Air Room Air 12/13/18 12/13/18 11:00 12:01 Temp 97.9 97.9 Pulse 85 Resp 20 B/P (MAP) 109/69 (82) Pulse Ox 96 O2 Delivery Room Air Room Air Intake and Output 12/12/18 12/12/18 12/13/18 15:00 23:00 07:00 Intake Total 180 ml 690 ml Balance 180 ml 690 ml SAMIRA CODY MD Dec 13, 2018 15:50
--- NOTE | 2018-12-13 15:52 | PDOC3 ---
Discharge Summary Visit Information Date of Admission: Dec 11, 2018 Date of Discharge: Dec 13, 2018 Final Diagnosis acute angina, r/o ACS cocaine abuse Dm2, poor control tobacco use disorder EtOH abuse Problems Medical Problems: (1) Acute chest pain Status: Acute (2) Tobacco abuse Status: Acute Brief Hospital Course Allergies Allergies Coded Allergies Type Severity Reaction Last Updated Verified No Known Drug Allergies 12/11/18 No Vital Signs Vital Signs Date Time Temp Pulse Resp B/P (MAP) Pulse Ox O2 Delivery O2 Flow Rate FiO2 12/13/18 12:01 Room Air 12/13/18 11:00 97.9 85 20 109/69 (82) 96 97.9 Lab Results Laboratory Tests Test 12/11/18 17:12 12/11/18 17:50 12/11/18 19:40 12/11/18 20:48 Glucose (Fingerstick) 240 mg/dL (70-99) 186 mg/dL (70-99) Troponin I Quantitative < 0.017 ng/mL (0.000-0.055) Urine Opiates Screen Neg (NEG) Urine Methadone Screen Neg (NEG) Urine Barbiturates Neg (NEG) Urine Phencyclidine Screen Neg (NEG) Urine Amphetamine/Methamphetamine Neg (NEG) Urine Benzodiazepines Screen Neg (NEG) Urine Cocaine Screen Pos (NEG) Urine Cannabinoids Screen Neg (NEG) Urine Ethyl Alcohol Neg (NEG) Test 12/11/18 20:50 12/12/18 07:52 12/12/18 11:00 12/12/18 17:08 Troponin I Quantitative < 0.017 ng/mL (0.000-0.055) Glucose (Fingerstick) 190 mg/dL (70-99) 297 mg/dL (70-99) 286 mg/dL (70-99) Test 12/12/18 21:01 12/13/18 05:00 12/13/18 07:17 12/13/18 11:49 Glucose (Fingerstick) 303 mg/dL (70-99) 208 mg/dL (70-99) 213 mg/dL (70-99) White Blood Count 4.7 x10^3/uL (4.0-11.0) Red Blood Count 4.81 x10^6/uL (4.30-5.70) Hemoglobin 14.2 g/dL (13.0-17.5) Hematocrit 41.8 % (39.0-53.0) Mean Corpuscular Volume 87 fL (79-100) Mean Corpuscular Hemoglobin 30 pg (25-35) Mean Corpuscular Hemoglobin Concent 34 g/dL (31-37) Red Cell Distribution Width 14.0 % (11.5-14.5) Platelet Count 207 x10^3/uL (140-400) Neutrophils (%) (Auto) 29 % (31-73) Lymphocytes (%) (Auto) 58 % (24-48) Monocytes (%) (Auto) 9 % (0-9) Eosinophils (%) (Auto) 3 % (0-3) Basophils (%) (Auto) 1 % (0-3) Neutrophils # (Auto) 1.4 x10^3/uL (1.8-7.7) Lymphocytes # (Auto) 2.7 x10^3/uL (1.0-4.8) Monocytes # (Auto) 0.4 x10^3/uL (0.0-1.1) Eosinophils # (Auto) 0.1 x10^3/uL (0.0-0.7) Basophils # (Auto) 0.0 x10^3/uL (0.0-0.2) Sodium Level 139 mmol/L (136-145) Potassium Level 4.3 mmol/L (3.5-5.1) Chloride Level 102 mmol/L (98-107) Carbon Dioxide Level 26 mmol/L (21-32) Anion Gap 11 (6-14) Blood Urea Nitrogen 11 mg/dL (8-26) Creatinine 1.2 mg/dL (0.7-1.3) Estimated GFR (Cockcroft-Gault) 75.5 BUN/Creatinine Ratio 9 (6-20) Glucose Level 285 mg/dL (70-99) Calcium Level 10.2 mg/dL (8.5-10.1) Total Bilirubin 0.2 mg/dL (0.2-1.0) Aspartate Amino Transf (AST/SGOT) 15 U/L (15-37) Alanine Aminotransferase (ALT/SGPT) 20 U/L (16-63) Alkaline Phosphatase 106 U/L (46-116) Total Protein 7.2 g/dL (6.4-8.2) Albumin 3.3 g/dL (3.4-5.0) Albumin/Globulin Ratio 0.8 (1.0-1.7) Triglycerides Level 265 mg/dL (0-150) Cholesterol Level 161 mg/dL (0-200) LDL Cholesterol, Calculated 76 mg/dL (0-100) VLDL Cholesterol, Calculated 53 mg/dL (0-40) Non-HDL Cholesterol Calculated 129 mg/dL (0-129) HDL Cholesterol 32 mg/dL (40-60) Cholesterol/HDL Ratio 5.0 Laboratory Tests Test 12/12/18 17:08 12/12/18 21:01 12/13/18 05:00 12/13/18 07:17 Glucose (Fingerstick) 286 mg/dL (70-99) 303 mg/dL (70-99) 208 mg/dL (70-99) White Blood Count 4.7 x10^3/uL (4.0-11.0) Red Blood Count 4.81 x10^6/uL (4.30-5.70) Hemoglobin 14.2 g/dL (13.0-17.5) Hematocrit 41.8 % (39.0-53.0) Mean Corpuscular Volume 87 fL (79-100) Mean Corpuscular Hemoglobin 30 pg (25-35) Mean Corpuscular Hemoglobin Concent 34 g/dL (31-37) Red Cell Distribution Width 14.0 % (11.5-14.5) Platelet Count 207 x10^3/uL (140-400) Neutrophils (%) (Auto) 29 % (31-73) Lymphocytes (%) (Auto) 58 % (24-48) Monocytes (%) (Auto) 9 % (0-9) Eosinophils (%) (Auto) 3 % (0-3) Basophils (%) (Auto) 1 % (0-3) Neutrophils # (Auto) 1.4 x10^3/uL (1.8-7.7) Lymphocytes # (Auto) 2.7 x10^3/uL (1.0-4.8) Monocytes # (Auto) 0.4 x10^3/uL (0.0-1.1) Eosinophils # (Auto) 0.1 x10^3/uL (0.0-0.7) Basophils # (Auto) 0.0 x10^3/uL (0.0-0.2) Sodium Level 139 mmol/L (136-145) Potassium Level 4.3 mmol/L (3.5-5.1) Chloride Level 102 mmol/L (98-107) Carbon Dioxide Level 26 mmol/L (21-32) Anion Gap 11 (6-14) Blood Urea Nitrogen 11 mg/dL (8-26) Creatinine 1.2 mg/dL (0.7-1.3) Estimated GFR (Cockcroft-Gault) 75.5 BUN/Creatinine Ratio 9 (6-20) Glucose Level 285 mg/dL (70-99) Calcium Level 10.2 mg/dL (8.5-10.1) Total Bilirubin 0.2 mg/dL (0.2-1.0) Aspartate Amino Transf (AST/SGOT) 15 U/L (15-37) Alanine Aminotransferase (ALT/SGPT) 20 U/L (16-63) Alkaline Phosphatase 106 U/L (46-116) Total Protein 7.2 g/dL (6.4-8.2) Albumin 3.3 g/dL (3.4-5.0) Albumin/Globulin Ratio 0.8 (1.0-1.7) Triglycerides Level 265 mg/dL (0-150) Cholesterol Level 161 mg/dL (0-200) LDL Cholesterol, Calculated 76 mg/dL (0-100) VLDL Cholesterol, Calculated 53 mg/dL (0-40) Non-HDL Cholesterol Calculated 129 mg/dL (0-129) HDL Cholesterol 32 mg/dL (40-60) Cholesterol/HDL Ratio 5.0 Test 12/13/18 11:49 Glucose (Fingerstick) 213 mg/dL (70-99) Brief Hospital Course Mr. Solitario is a 58 old male, admit with chest pain and angina, provoked pain from dm2, tobacco , poor compliance and cocaine use. sobriety discussed echo largely OK, diastolic dysfunction, EF 60-65% and LVH Discharge Information Condition at Discharge: Improved Follow Up: Weeks Disposition/Orders: D/C to Home Scheduled Aspirin (Aspir-Low) 81 Mg Tablet., 1 TAB PO DAILY for heart, #30 Ref 3 (Reported) Entered as Reported by: BAN SIMON on 12/11/181628 Last Action: Continued on 12/11/181650 by BAN SIMON Atorvastatin Calcium (Lipitor) 40 Mg Tablet, 1 TAB PO QHS for high cholesterol, #90 Ref 1 (Reported) Entered as Reported by: BAN SIMON on 12/11/181628 Last Action: Continued on 12/11/181650 by BAN SIMON Gabapentin (Gabapentin ) 300 Mg Capsule, 300 MG PO BID for NEUROGENIC PAIN, (Reported) Entered as Reported by: BAN SIMON on 12/11/181628 Last Action: Continued on 12/11/181650 by BAN SIMON Insulin Glargine,Hum.rec.anlog (Lantus Solostar) 100 Unit/1 Ml Insuln.pen, 20 UNIT SQ DAILY for DM, #15 Ref 3 (Reported) Entered as Reported by: BAN SIMON on 12/11/181628 Last Action: Converted on 12/11/181650 by BAN SIMON Metformin Hcl (Metformin Hcl) 1,000 Mg Tablet, 1,000 MG PO BIDWMEALS for DM, (Reported) Entered as Reported by: BAN SIMON on 12/11/181628 Last Action: Converted on 12/11/181650 by BAN SIMON Patient Instructions Patient Instructions face to face x2 SAMIRA CODY MD Dec 13, 2018 15:52
[2018-12-14 06:11] LABS: HEMOGLOBIN A1C 9.4 % (4.8-5.6)
== END 2018-12-13 15:15 | disposition home or self-care (01) | DRG 311 ==
LOC: ER 13:38 → 2 NORTH 14:07
PROVIDERS: ADMIT Family Medicine; ATTEND Family Medicine
DX: I20.9 Angina pectoris, unspecified (principal); E11.65 Type 2 diabetes mellitus with hyperglycemia; E78.5 Hyperlipidemia, unspecified; F10.10 Alcohol abuse, uncomplicated; F14.10 Cocaine abuse, uncomplicated; F17.210 Nicotine dependence, cigarettes, uncomplicated; I10 Essential (primary) hypertension; Z81.8 Family history of other mental and behavioral disorders; Z82.49 Family history of ischemic heart disease and other diseases of the circulatory system; Z79.4 Long term (current) use of insulin
CPT/HCPCS: 36415; 71045; 80053; 80061; 80307; 82550; 82962; 83036; 83690; 83735; 83880; 84484; 85025; 93005; 93306; 94640; 94760; 99406; J1650; J1815; J7030; J7620; 99285-25; G0378